=== PATIENT | male | born 1985 | race Caucasian/White ===

== ENCOUNTER 2019-01-14 01:13 | Observation (INO) ==
[2019-01-14] MEDS ORDERED: ACETAMINOPHEN 325 MG TAB PO PRN (01:28)
[2019-01-14 02:01] LABS: Hematocrit (blood only) 44.3 % (42-52); Hemoglobin 16.1 g/dL (14.0-18.0); Mean Corpuscular Hgb Conc 36.3 g/dL (32-36); Mean Corpuscular Volume 91.2 fL (80-100); Mean Platelet Volume 11.2 fL (7.4-10.4); Platelet Count 246 K/uL (130-400); RDW Coefficient of Variation 12.6 % (11.5-14.5); RDW Standard Deviation 41.8 fL (36.4-46.3); Red Blood Count 4.86 M/uL (4.7-6.1); White Blood Count 7.68 K/uL (4.8-10.8)
[2019-01-14 02:14] LABS: Partial Thromboplastin Time 27.9 Seconds (21.0-31.0)
[2019-01-14 02:21] LABS: BUN Creatinine Ratio 10.3 (10-20); Blood Urea Nitrogen 9 mg/dl (7-18); Calcium 8.3 mg/dl (8.5-10.1); Carbon Dioxide 29 mmol/L (21-32); Chloride 107 mmol/L (98-107); Creatinine Clr Calc Pharmacy 122.7 ml/min; Est GFR (African American) 134.6; Est GFR (Non-African American) 116.1; Glucose 91 mg/dl (70-99); Magnesium 2.3 mg/dl (1.8-2.4); Potassium 3.6 mmol/L (3.5-5.1); Sodium 139 mmol/L (136-145)
[2019-01-14 02:31] LABS: Folate (Folic Acid) 13.87 ng/ml (>5.38)
[2019-01-14 02:32] LABS: Chol HDL Ratio 4; Cholesterol 162 mg/dl (0-200); HDL Cholesterol 45 mg/dl; LDL Cholesterol Calculated 86 mg/dl; Triglycerides 156 mg/dl (0-150); Troponin I < 0.015 ng/ml (0-0.045); VLDL Cholesterol 31 mg/dl
[2019-01-14 02:38] LABS: ALC (manual) 3.95 K/uL (1.2-3.4); Basophils # (manual) 0.07 K/uL (0-0.2); Basophils % (manual) 0.9 %; Eosinophils % (manual) 2.6 %; Large Granular Lymph # (manua 1.21 K/uL; Large Granular Lymph % (manual) 15.7 %; Lymphocytes # (manual) 2.74 K/uL (1.2-3.4); Lymphocytes % (manual) 35.7 %; Metamyelocytes # (manual) 0.07 K/uL (0-0); Metamyelocytes % (manual) 0.9 %; Monocytes # (manual) 0.47 K/uL (0.11-0.59); Monocytes % (manual) 6.1 %; Neutrophils % (manual) 38.1 %; RBC Morphology Unremarkable
[2019-01-14] MEDS ORDERED: CALCIUM GLUCONATE 10% 1,000 MG in SODIUM CHLORIDE 0.9% 50 ML IV STA (03:39)
[2019-01-14] MEDS ORDERED: TRAMADOL HCL 50 MG TABLET PO PRN (03:39)
--- NOTE | 2019-01-14 04:35 | History & Physical Report ---
Date of Service January 14, 2019 Assessment & Plan (1) Atypical chest pain: Possibly musculoskeletal given reproducible component Rule out pericarditis Transient aphasia, extremity numbness symptoms Rule out TIA hx Lyme disease (Cardiac/ DRIER ATTENDANT involvement) sp tx ([facility] 2014) H. pylori infection as per records on PPI OBS PCU Check ESR, CRP, TTE RE chest pain MRI/MRA brain, Neurology consult RE transient aphasia Retrieve [facility] confinement records Further management pending work-up results. DVT prophylaxis. Lovenox subcu Full code Patient would like PCP's office to be notified of preferred name change to Ángel Valdivia. Patient employer requesting updates from providers. Ms.Nancy Everett, contact #[phone]. Patient friend, Ms. Shannon Castillo, agreeable to being contacted for size painter needs. Contact #[phone]. History of Present Illness Chief Complaint: Chest pain, transient aphasia, numbness arms and legs Primary Care Provider: Dr. Edouard (Patient recorded name is Ángel Bardales, MR#[id number], [employer] outpatient [employer] [facility].) History obtained from patient, patient employer, and records. Limited history from patient secondary to language barrier. Medical history significant for Lyme disease (Cardiac/ DRIER ATTENDANT involvement), H. pylori infection as per records on PPI, history of migraine. 5 years ago patient confined at [facility] for chest pain, extremity numbness symptoms attributed to Lyme disease. Transient third-degree AV block during confinement as per patient employer. Patient completed antibiotic Rx. 3 weeks ago patient noted intermittent left-sided chest discomfort sometimes going to the arm, somewhat pleuritic. Different from heartburn symptoms. Patient also having separate stomach upset symptoms which causes him to burp. Outpatient appointment with PCP slated for next week. Patient compliant with home meds. Yesterday patient noted to have transient aphasia symptoms, could not speak as p er employer, numbness of the hands and feet similar to symptoms from Lyme illness in the past. Migraine headaches controlled as per patient employer. Patient evaluated at [facility]. Improved chest pain, neurologic symptoms stay at the ER. CT head: No acute intracranial abnormality Chest x-ray was normal as per ER provider note. D-dimer, troponin, CBC, chemistries were normal. Urine tox was negative. Patient employer requested transfer to [facility]. Patient transported by employer to hospital via personal vehicle due to concerns with expenses with ambulance transfer from [facility]. 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 Allergies Allergy/AdvReac Type Severity Reaction Status Date / Time No Known Allergies Allergy Unverified 01/14/19 01:27 Home Medications Home Medications Medication Instructions Recorded Confirmed Type aspirin 81 mg PO DAILY 01/14/19 01/14/19 History omeprazole magnesium [Prilosec OTC] 20 mg PO DAILY 01/14/19 01/14/19 History topiramate [Topamax] 50 mg PO DAILY 01/14/19 01/14/19 History Past Med/Surg History Medical History Lyme disease Migraine Social History Preferred Language: Filipino Communication Ability: Effective Instructional Resource Teacher Required: Yes Beliefs That Will Affect Care: None Current Living Situation: Other Current Living Situation Comment: employee house Other Information That Helps Us Care for You: No Feels Safe at Home: Yes Smoking Status: Former smoker Second Hand Exposure: No Hx Alcohol Use: No Hx Substance Use: No Review of Systems Review of Systems: Could not be reliably obtained Physical Exam Physical Exam: GENERAL: Comfortable, pleasant, obese, no respiratory distress SKIN: Normal color, warm HEENT: [place] palpebral conjunctivae, no ptosis, dry buccal mucosa NECK : Supple, short neck, no tenderness CHEST : CTA, anterior chest wall tenderness HEART : RRR, no obvious murmurs ABDOMEN: Some distention, nontender EXTREMITIES : No LE swelling/tenderness, no other conspicuous deformities noted NEUROLOGIC : Coherent, no facial asymmetry, no other gross focality Results & Data Vital Signs (Past 12 Hours) Vital Signs Temp Pulse Resp BP Pulse Ox 01/14/19 04:00 36.6 C 59 L 16 134/73 99 01/14/19 01:32 36.5 C 61 20 135/71 98 Laboratory Results Laboratory Results WBC 7.68 K/uL (4.8-10.8) 01/14/19 01:41 RBC 4.86 M/uL (4.7-6.1) 01/14/19 01:41 Hgb 16.1 g/dL (14.0-18.0) 01/14/19 01:41 Hct 44.3 % (42-52) 01/14/19 01:41 MCV 91.2 fL (80-100) 01/14/19 01:41 MCH 33.1 pg (25-34) 01/14/19 01:41 MCHC 36.3 g/dL (32-36) H 01/14/19 01:41 RDW Std Deviation 41.8 fL (36.4-46.3) 01/14/19 01:41 RDW Coeff of [place] 12.6 % (11.5-14.5) 01/14/19 01:41 Plt Count 246 K/uL (130-400) 01/14/19 01:41 MPV 11.2 fL (7.4-10.4) H 01/14/19 01:41 Neutrophils % (Manual) 38.1 % 01/14/19 01:41 Lymphocytes % (Manual) 35.7 % 01/14/19 01:41 Monocytes % (Manual) 6.1 % 01/14/19 01:41 Eosinophils % (Manual) 2.6 % 01/14/19 01:41 Basophils % (Manual) 0.9 % 01/14/19 01:41 Metamyelocytes % (Man) 0.9 % 01/14/19 01:41 Neutrophils # (Manual) 2.93 K/uL (1.4-6.5) 01/14/19 01:41 Total Absolute Neuts 2.93 K/uL (1.4-6.5) 01/14/19 01:41 Lymphocytes # (Manual) 2.74 K/uL (1.2-3.4) 01/14/19 01:41 Total Abs Lymphocytes 3.95 K/uL (1.2-3.4) H 01/14/19 01:41 Monocytes # (Manual) 0.47 K/uL (0.11-0.59) 01/14/19 01:41 Eosinophils # (Manual) 0.20 K/uL (0-0.5) 01/14/19 01:41 Basophils # (Manual) 0.07 K/uL (0-0.2) 01/14/19 01:41 Metamyelocytes # (Man) 0.07 K/uL (0-0) H 01/14/19 01:41 Large Granular Lymphs 15.7 % 01/14/19 01:41 # Lrg Granular Lymphs 1.21 K/uL 01/14/19 01:41 RBC Morphology Unremarkable 01/14/19 01:41 APTT 27.9 Seconds (21.0-31.0) 01/14/19 01:41 PTT Ratio 1.0 01/14/19 01:41 Sodium 139 mmol/L (136-145) 01/14/19 01:41 Potassium 3.6 mmol/L (3.5-5.1) 01/14/19 01:41 Chloride 107 mmol/L (98-107) 01/14/19 01:41 Carbon Dioxide 29 mmol/L (21-32) 01/14/19 01:41 Anion Gap 3.0 (3-11) 01/14/19 01:41 BUN 9 mg/dl (7-18) 01/14/19 01:41 Creatinine 0.85 mg/dl (0.6-1.4) 01/14/19 01:41 Est Cr Clr Drug Dosing 122.7 ml/min 01/14/19 01:41 Est GFR ( Amer) 134.6 01/14/19 01:41 Est GFR (Non-Af Amer) 116.1 01/14/19 01:41 BUN/Creatinine Ratio 10.3 (10-20) 01/14/19 01:41 Glucose 91 mg/dl (70-99) 01/14/19 01:41 Calcium 8.3 mg/dl (8.5-10.1) L 01/14/19 01:41 Magnesium 2.3 mg/dl (1.8-2.4) 01/14/19 01:41 Troponin I < 0.015 ng/ml (0-0.045) 01/14/19 01:41 Triglycerides 156 mg/dl (0-150) H 01/14/19 01:41 Cholesterol 162 mg/dl (0-200) 01/14/19 01:41 LDL Cholesterol, Calc 86 mg/dl 01/14/19 01:41 VLDL Cholesterol, Calc 31 mg/dl 01/14/19 01:41 HDL Cholesterol 45 mg/dl 01/14/19 01:41 Cholesterol/HDL Ratio 4 01/14/19 01:41 Vitamin B12 384 pg/ml (211-911) 01/14/19 01:41 Folate 13.87 ng/ml (>5.38) 01/14/19 01:41 TSH 1.990 uIu/ml (0.300-4.500) 01/14/19 01:41 Diagnostic Findings EKG (01/13/19, [facility]) as per my interpretation: Rate 60, NSR, no ischemia CT abdomen pelvis initial read: Normal appendix, no bowel wall thickening/obstruction. No free air/free fluid. Small fat-containing left inguinal hernia. No other findings.
[2019-01-14] MEDS ORDERED: PROMETHAZINE HCL 12.5 MG in SODIUM CHLORIDE 0.9% 50 ML IV PRN (04:37)
[2019-01-14] MEDS ORDERED: NSS + 20MEQ KCL 20 MEQ/1,000 ML BAG IV ONE (04:37)
[2019-01-14] MEDS ORDERED: KETOROLAC TROMETHAMINE 15 MG/ML VIAL IV PRN (04:39)
[2019-01-14] MEDS ORDERED: MoRPHine SULFATE 2 MG/ML CARP IV PRN (04:41)
[2019-01-14] MEDS ORDERED: POTASSIUM CHLORIDE 20 MEQ TABCR PO STA (04:47)
[2019-01-14 04:58] LABS: Alanine Aminotransferase 46 U/L (12-78); Albumin Level 3.7 gm/dl (3.4-5.0); Alkaline Phosphatase 74 U/L (45-117); Aspartate Aminotransferase 22 U/L (15-37); Bilirubin Direct 0.2 mg/dl (0-0.2); Bilirubin,Total 1.1 mg/dl (0.2-1); Total Protein 7.8 gm/dl (6.4-8.2)
[2019-01-14] MEDS ORDERED: IOVERSOL 100ml IV PRN (05:04)
[2019-01-14 05:30] LABS: Lyme Ab IgG w/WB Rflx Negative (Negative); Lyme Ab IgM w/WB Rflx Negative (Negative)
[2019-01-14] MEDS: PANTOprazole 40 MG TAB PO SCH ×2 (07:05→20:53)
[2019-01-14] MEDS: ASPIRIN 81 MG ECTAB PO SCH (07:06)
[2019-01-14] MEDS: TOPIRAMATE 50 MG TAB PO SCH (07:07)
--- NOTE | 2019-01-14 07:39 | CT Scan Report ---
CT abd pelvis IV con only CLINICAL HISTORY: Generalized abdominal pain COMPARISON STUDY: None. TECHNIQUE: The patient was scanned in a dynamic helical fashion during intravenous administration of 94 cc of Optiray 320. A dose lowering technique was utilized adhering to the principles of ALARA. CT DOSE: 357.73 mGy.cm FINDINGS: Lower chest: The heart is normal in size and configuration, without pericardial effusion. The lung ba ses and pleural spaces are clear. Liver: The contrast-enhanced liver is normal in size, contour, and attenuation. There is no intrahepa tic biliary ductal dilatation. The hepatic veins and portal veins are patent. Gallbladder: Unremarkable. Spleen: Normal in size and attenuation. Pancreas: Unremarkable. Adrenal glands: Unremarkable. Kidneys: There is symmetric renal cortical enhancement. The kidneys are normal in size without hydron ephrosis. Bowel: There are no transition zones to indicate bowel obstruction. There is no evidence of acute div erticulitis. The appendix appears normal. Peritoneum: There is no intraperitoneal free air or abdominal ascites. There is a small fat-containin g left inguinal hernia. Vasculature: The abdominal aorta is normal in course and caliber. Adenopathy: None. Pelvic viscera: The bladder, and pelvic viscera are unremarkable. Skeletal structures: No destructive osseous lesions are seen. IMPRESSION: 1. No acute intra-abdominal or pelvic findings 2. No evidence of bowel obstruction. No evidence of free air 3. No evidence of acute diverticulitis. No evidence of acute appendicitis. Electronically signed by: Leander Boateng M.D. 01/14/2019 7:37 AM
[2019-01-14] MEDS: ENOXAPARIN INJ 40 MG/0.4 ML SYR SQ SCH (08:16)
[2019-01-14] MEDS ORDERED: PANTOprazole 40 MG TAB PO SCH (09:00)
--- NOTE | 2019-01-14 10:51 | Communication Note ---
Date of Service: January 14, 2019 I seen Mr. Valdivia today, interviewed him through the translating device we have available [facility], have reviewed the recorded history and the labs that we do have record at present but many of these are still pending I also performed a neurologic examination This man presents with a single episode yesterday of paresthesias involving his lips face hands and feet transient duration perhaps associated with some hyperventilation and increasing chest pain and not affiliated with any significant headache despite his history of migraines. He has seen Dr. Dutta in [place] about a year ago and was placed on Topamax I would assume at that time and is done well on very low-dose 50 mg a day without any complaints of cognitive impairment that I can obtain He has a remote history of Lyme disease with carditis and perhaps central nervous system involvement of unrecalled type treated at [facility] in 2014 and records regarding this are being requested He apparently stated that his symptoms were similar to those that he suffered at the onset of his Lyme disorder Currently he appears well on the neurologic examination is normal and we are awaiting results of the MRI and MRA I suspect that we probably are not going to see much other than perhaps some chronic low level white matter changes that we often see in patients who have had Lyme disease or have migraines and I do not see any acute neurologic events in the brainstem or evidence for any type of embolic shower I wonder if some of this was not anxiety related because of his increasing chest pain and I wonder if there was an element of hyperventilation but again this is a diagnosis of exclusion Full neurologic consultation has been dictated but will be later I will check back regarding the results of the MRI and MRA and will see the patient tomorrow Khoa Schwab MD
--- NOTE | 2019-01-14 11:14 | Magnetic Resonance Report ---
MRI OF THE BRAIN WITHOUT CONTRAST CLINICAL HISTORY: transient aphasia DIZZINESS. COMPARISON STUDY: Outside head CT dated 01/13/2019 FINDINGS: Sagittal T1, axial diffusion, proton density and T2 weighted axial, coronal FLAIR, and axial T1-weigh robin images were acquired. No intra or extra-axial mass lesions are visualized Axial diffusion-weighted images reveal no evidence of acute or subacute infarction. There is no evidence of ventricular dilatation. There is a cavum septa pellucida and cavum vergae. Proton density T2-weighted and FLAIR images reveal a tiny focus of increased FLAIR signal within the left temporal lobe. This finding is unlikely to be of acute clinical significance. There are no abnormal flow voids. IMPRESSION: 1. No acute intracranial findings 2. No evidence of intracranial mass 3. No evidence of acute or subacute infarction 4. 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 01/14/2019 11:13 AM
--- NOTE | 2019-01-14 11:17 | Magnetic Resonance Report ---
MR ANGIOGRAPHY OF THE [place]GR[place] OF [place] NO CONTRAST CLINICAL HISTORY: transient aphasia COMPARISON STUDY: None. A 3-D [id number] MR angiographic sequence of the [place] of [place] was performed. Both the source and projection images were reviewed. There is no evidence of major intracranial branch occlusion. There is no evidence of intracranial veronica nosis. There are no lesions suspicious for aneurysm. IMPRESSION: Unremarkable MR angiography of the [place]. Electronically signed by: Leander Boateng M.D. 01/14/2019 11:16 AM
--- NOTE | 2019-01-14 11:58 | Consultation Report ---
DATE OF CONSULTATION: 01/14/2019 HISTORY OF PRESENT ILLNESS: Ángel is 33 years old, resides in [place], lists his primary care physician as Dr. Edouard and has seen Dr. Dutta, a neurologist in [facility] for migraine headaches in the past and is currently taking Topamax in low dose with theoretically good control of the migraine frequency according to what I can glean from the patient and this information was gathered through the use of our translation device. 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 He has had increasing chest pain and was admitted because of that in addition to an episode yesterday during which he had paresthesias involving his lips, hands and feet, perhaps was a little dyspneic during this, perhaps had a little increase in the chest pain, and may have had difficulty forming words, although this aspect of the history is very unclear and it sounds as though most of it was a sensory phenomenon and its duration was relatively short and not accompanied by any other neurologic manifestations or by headache and has not recurred up until this time. He has been admitted to the hospital. An echocardiogram has been done which shows no significant cardiac valvular disease or source of emboli and he is off to have an MRI and MRA done but this has not been performed, but will be shortly. Records concerning [facility] data and the nature of his cardiac and neurologic involvement are being requested but are not here and other laboratory studies are still pending as he was just admitted from the Emergency Room less than 5 hours ago. PAST MEDICAL HISTORY: At this point is really as recorded and is pretty benign including a migraine headaches and history of Lyme disease. SOCIAL HISTORY: Reveals him to be employed. He lives in the [facility]. He takes no medications on a regular basis at home other than his Topamax, aspirin, and omeprazole and the Topamax dose is very low at 50 mg. ALLERGIES: He has no allergies to food or drugs. FAMILY HISTORY: Noncontributory. REVIEW OF SYSTEMS: Reveals chest pain, the low frequency migraine headaches, and the single event yesterday of the paresthesia involving his lips, hands, and feet, which was transient and has not recurred and otherwise seems to be unremarkable with the exception obviously of this history of Lyme disease from which he apparently has recovered. PHYSICAL EXAMINATION: VITAL SIGNS: Examination yesterday revealed temperature of 36.6, pulse was 59, respirations were 16, blood pressure was 134/73, and pulse oxygenation was 99. GENERAL: He was moderately over nourished, otherwise appeared to be in no acute distress. HEENT: Normal exam. NECK: No carotid bruits. LUNGS: Normal examination. HEART: Normal examination. There was no peripheral edema. NEUROLOGIC: Today, neurologically again we had to use a sweeper cleaner industrial, but his command of Yakut appeared to be quite adequate to provide a history and the sweeper cleaner industrial did not report any problems with inappropriate usage of words, etc. The history I obtained seems to correlate without change from the Emergency Room and the patient does have sufficient command over simple Polish to follow my instructions and did so well. He has normal eye movements, normal gross visual talavera, normal facial motility and strength, grossly normal facial sensation. Speech seems to be clear and nondysarthric. There is no drift or pronation sign, tremor, tics, or choreiform activity. No reflex asymmetry is noted and all reflexes are present. Toes are downgoing. No Kim signs are seen. Strength testing is normal. Sensation is intact to vibration, light touch, and temperature. LABORATORY DATA: Basic laboratory studies including a CBC and chemistry screen are pretty unremarkable and certainly normal and thus far again the echocardiogram is normal but other imaging studies are still pending. ASSESSMENT AND PLAN: I am not sure what happened yesterday. Some of this sounds like a potential hyperventilation or anxiety episode with the paresthesias and I am really not sure at all that he had what we are terming an aphasia. I will be curious to see what the MRI shows and the MRA. I suspect we would not see much, but we may see some residual of the prior Lyme disease. We may even see some high T2 intensity signals in a man who has had migraines, so I will get back to the chart tomorrow, take a look at him tomorrow afternoon, and we will go from there, but for the present time I see no reason to change his medications either for migraine control or low-grade vascular prophylaxis with the aspirin. RIMA
[2019-01-14] MEDS ORDERED: CYCLOBENZAPRINE HCL 5 MG TAB PO PRN (12:50)
--- NOTE | 2019-01-14 12:53 | Hospitalist Progress Note ---
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 pylori infection as per records on PPI Retrieve [facility] confinement records Further management pending work-up results. DVT prophylaxis. Lovenox subcu Full code Disposition pending Subjective Follow-up for apparent expressive aphasia, chest pain Train Operations Manager utilized Patient states he feels better overall Denies active chest pain, reports chest pain is worse with movement, sharp Denies associated shortness of breath, dizziness, sweats No recurrence of difficulty speaking or any focal neurologic deficits Denies other symptoms Review of Systems Review of Systems: All systems reviewed & are unremarkable except as noted in HPI & below Physical Exam Physical Exam: General- oriented x 3, not in distress, speaks in sentences with no effort or accessory muscle use Head- atraumatic Eyes- PERRL, EOMI, anicteric ENT- oropharynx clear Neck- supple, no JVD, no adenopathy, no thyromegaly; carotids +2/2, no bruits appreciated Lungs- clear to auscultation bilaterally, no rales/wheezes Heart- normal rate, regular rhythm; no murmur, no gallop, no rub appreciated Abdomen- normal bowel sounds, nondistended, soft, nontender, no masses or hepatosplenomegaly Extremities- no pretibial edema, no calf tenderness; peripheral pulses intact Neuro- alert, oriented x 3; CN 2-12 grossly intact; motor 5/5 bilaterally;sensation 100% on all extremities; no other gross focal neurologic deficits Skin- warm & dry Results & Data Vital Signs (Past 12 Hours) Vital Signs Temp Pulse Pulse Resp BP Pulse Ox Pulse Ox 01/14/19 09:04 36.2 C L 74 18 125/80 01/14/19 07:20 59 L 01/14/19 07:13 99 01/14/19 04:00 36.6 C 59 L 16 134/73 99 01/14/19 01:32 36.5 C 61 20 135/71 98 Laboratory Results Laboratory Results - last 24 hr 01/14/19 01/14/19 01/14/19 01:41 01:41 01:41 WBC 7.68 RBC 4.86 Hgb 16.1 Hct 44.3 MCV 91.2 MCH 33.1 MCHC 36.3 H RDW Std Deviation 41.8 RDW Coeff of [place] 12.6 Plt Count 246 MPV 11.2 H Neutrophils % (Manual) 38.1 Lymphocytes % (Manual) 35.7 Monocytes % (Manual) 6.1 Eosinophils % (Manual) 2.6 Basophils % (Manual) 0.9 Metamyelocytes % (Man) 0.9 Neutrophils # (Manual) 2.93 Total Absolute Neuts 2.93 Lymphocytes # (Manual) 2.74 Total Abs Lymphocytes 3.95 H Monocytes # (Manual) 0.47 Eosinophils # (Manual) 0.20 Basophils # (Manual) 0.07 Metamyelocytes # (Man) 0.07 H Large Granular Lymphs 15.7 # Lrg Granular Lymphs 1.21 RBC Morphology Unremarkable ESR APTT PTT Ratio Sodium 139 Potassium 3.6 Chloride 107 Carbon Dioxide 29 Anion Gap 3.0 BUN 9 Creatinine 0.85 Est Cr Clr Drug Dosing 122.7 Est GFR ( Amer) 134.6 Est GFR (Non-Af Amer) 116.1 BUN/Creatinine Ratio 10.3 Glucose 91 Calcium 8.3 L Magnesium 2.3 Total Bilirubin 1.1 H Direct Bilirubin 0.2 AST 22 ALT 46 Alkaline Phosphatase 74 Troponin I < 0.015 C-Reactive Protein Total Protein 7.8 Albumin 3.7 Triglycerides 156 H Cholesterol 162 LDL Cholesterol, Calc 86 VLDL Cholesterol, Calc 31 HDL Cholesterol 45 Cholesterol/HDL Ratio 4 Lipase 150 Vitamin B12 384 Folate 13.87 TSH 1.990 RPR Lyme Disease IgG Ab Lyme Disease IgM Ab 01/14/19 01/14/19 01/14/19 01:41 01:41 01:41 WBC RBC Hgb Hct MCV MCH MCHC RDW Std Deviation RDW Coeff of [place] Plt Count MPV Neutrophils % (Manual) Lymphocytes % (Manual) Monocytes % (Manual) Eosinophils % (Manual) Basophils % (Manual) Metamyelocytes % (Man) Neutrophils # (Manual) Total Absolute Neuts Lymphocytes # (Manual) Total Abs Lymphocytes Monocytes # (Manual) Eosinophils # (Manual) Basophils # (Manual) Metamyelocytes # (Man) Large Granular Lymphs # Lrg Granular Lymphs RBC Morphology ESR APTT 27.9 PTT Ratio 1.0 Sodium Potassium Chloride Carbon Dioxide Anion Gap BUN Creatinine Est Cr Clr Drug Dosing Est GFR ( Amer) Est GFR (Non-Af Amer) BUN/Creatinine Ratio Glucose Calcium Magnesium Total Bilirubin Direct Bilirubin AST ALT Alkaline Phosphatase Troponin I C-Reactive Protein Total Protein Albumin Triglycerides Cholesterol LDL Cholesterol, Calc VLDL Cholesterol, Calc HDL Cholesterol Cholesterol/HDL Ratio Lipase Vitamin B12 Folate TSH RPR Pending Lyme Disease IgG Ab Negative Lyme Disease IgM Ab Negative 01/14/19 01/14/19 07:53 07:53 WBC RBC Hgb Hct MCV MCH MCHC RDW Std Deviation RDW Coeff of [place] Plt Count MPV Neutrophils % (Manual) Lymphocytes % (Manual) Monocytes % (Manual) Eosinophils % (Manual) Basophils % (Manual) Metamyelocytes % (Man) Neutrophils # (Manual) Total Absolute Neuts Lymphocytes # (Manual) Total Abs Lymphocytes Monocytes # (Manual) Eosinophils # (Manual) Basophils # (Manual) Metamyelocytes # (Man) Large Granular Lymphs # Lrg Granular Lymphs RBC Morphology ESR 9 APTT PTT Ratio Sodium Potassium Chloride Carbon Dioxide Anion Gap BUN Creatinine Est Cr Clr Drug Dosing Est GFR ( Amer) Est GFR (Non-Af Amer) BUN/Creatinine Ratio Glucose Calcium Magnesium Total Bilirubin Direct Bilirubin AST ALT Alkaline Phosphatase Troponin I C-Reactive Protein < 0.29 Total Protein Albumin Triglycerides Cholesterol LDL Cholesterol, Calc VLDL Cholesterol, Calc HDL Cholesterol Cholesterol/HDL Ratio Lipase Vitamin B12 Folate TSH RPR Lyme Disease IgG Ab Lyme Disease IgM Ab
[2019-01-15] MEDS ORDERED: SODIUM CHLORIDE 0.9% 1000ML 1,000 ML IV SCH (08:00)
[2019-01-15 08:13] LABS: Basophils # (auto) 0.03 K/uL (0-0.2); Basophils % (auto) 0.5 %; Eosinophils # (auto) 0.11 K/uL (0-0.5); Eosinophils % (auto) 1.9 %; Hematocrit (blood only) 47.4 % (42-52); Hemoglobin 17.1 g/dL (14.0-18.0); Immature Granulocytes # (auto) 0.03 K/uL (0.00-0.02); Immature Granulocytes % (auto) 0.5 %; Lymphocytes # (auto) 2.54 K/uL (1.2-3.4); Lymphocytes % (auto) 43.9 %; Mean Corpuscular Hgb Conc 36.1 g/dL (32-36); Mean Corpuscular Volume 92.6 fL (80-100); Mean Platelet Volume 11.5 fL (7.4-10.4); Monocytes # (auto) 0.34 K/uL (0.11-0.59); Monocytes % (auto) 5.9 %; Neutrophils # (auto) 2.73 K/uL (1.4-6.5); Neutrophils % (auto) 47.3 %; Platelet Count 250 K/uL (130-400); RDW Coefficient of Variation 12.6 % (11.5-14.5); RDW Standard Deviation 42.6 fL (36.4-46.3); Red Blood Count 5.12 M/uL (4.7-6.1); White Blood Count 5.78 K/uL (4.8-10.8)
[2019-01-15] MEDS: TOPIRAMATE 50 MG TAB PO SCH (08:41)
[2019-01-15] MEDS: ASPIRIN 81 MG ECTAB PO SCH (08:41)
[2019-01-15] MEDS: PANTOprazole 40 MG TAB PO SCH (08:41)
[2019-01-15] MEDS: ENOXAPARIN INJ 40 MG/0.4 ML SYR SQ SCH (08:42)
[2019-01-15 08:46] LABS: BUN Creatinine Ratio 14.9 (10-20); Calcium 8.9 mg/dl (8.5-10.1); Creatinine Clr Calc Pharmacy 115.9 ml/min; Est GFR (African American) 131.4; Est GFR (Non-African American) 113.4
--- NOTE | 2019-01-15 14:29 | XRay Report ---
LEFT SHOULDER 3 VIEWS CLINICAL HISTORY: Left shoulder pain. FINDINGS: 3 views of the left shoulder are obtained. No prior studies are available for comparison at the time of dictation. The skeletal structures are well mineralized. No fracture or dislocation is s een. The glenohumeral and acromioclavicular joints are preserved. The visualized left upper lobe lung parenchyma appears clear. IMPRESSION: No acute bony abnormality is identified. Electronically signed by: Isauro Carvalho M.D. 01/15/2019 2:27 PM
--- NOTE | 2019-01-15 14:40 | Communication Note ---
Date of Service: January 15, 2019 I saw Mr. Valdivia briefly today, reviewed his imaging studies and reports and have pleased to report that he has had no further episodes of the paresthesias involving his lips hands or feet and that his chest pain and other issues seem to be resolving Furthermore his MRI scan and MRA studies of the cerebral circulation show no evidence for significant pathology and show no evidence for white matter changes that might have been seen following his Lyme disease or with his history of migraines At this point time according to the history obtained yesterday his migraines have been under good control with Topamax, he sees Dr. Dutta of [place] on an as- needed basis and luckily has not needed this service and his exam and imaging studies at this point show no evidence for an acute vascular event or indeed any prior significant vascular events or evidence for vasculitis so at this point I am going to sign off the case and will be happy to see him on an as-needed basis but frankly since he resides in [place] and has a relationship with Dr. Dutta I think for future and neurologic care should rest with that neurologic practice rather than ours here in [place] Khoa Schwab MD
--- NOTE | 2019-01-15 15:45 | Hospitalist Progress Note ---
Date of Service January 15, 2019 Assessment & Plan (1) Atypical chest pain: Possibly musculoskeletal given reproducibility, occurs with movement --ESR 9 --Troponin x 3 negative EKG no signs of acute ischemia or infarct Echo: The left ventricle is normal in size There is borderline concentric left ventricular hypertrophy Left ventricular wall motion is normal The left ventricular systolic function is normal Ejection fraction 60 to 65% There is no significant valvular disease -- no recurrence of chest pain on admission Transient aphasia, paresthesias -- MRI Brain: IMPRESSION: 1. No acute intracranial findings 2. No evidence of intracranial mass 3. No evidence of acute or subacute infarction 4. 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 --Neurologist, Dr. Schwab consulted --Feels episode likely secondary to hyperventilation secondary to anxiety brought on by chest pain No further interventions or additional medications recommended History of migraine Stable Follows with a neurologist in [place] Dr. Dutta Continue usual aspirin and Topamax hx Lyme disease (Cardiac/ FUR POLISHER involvement) sp tx ([facility] 2014) H. pylori infection, Dyspepsia Patient has been taking Prilosec for 2 to 3 weeks for dyspepsia symptoms States symptoms have resolved Recommend to discontinue Prilosec, and observe Recommend dietary changes, taking aspirin with a full stomach Follow-up closely as an outpatient Disposition discharge to home Follow-up with primary care physician Dr. Iqbal as outlined in DC instructions discussed with patient and his employer, all quesitons answered they are understanding, agreeable and comfortable with plan of care Subjective ff up for episode of chest pain, paresthesias seen resting in bed, comfortable, in good spirits states he feels fine overall no recurrence of chest pain, difficulty speaking, paresthesias, focal weakness/numbness denies other symptoms states he is back to his normal self states he is ready for discharge Review of Systems Review of Systems: All systems reviewed & are unremarkable except as noted in HPI & below Physical Exam Physical Exam: General- oriented x 3, not in distress, speaks in sentences with no effort or accessory muscle use Eyes- anicteric Neck- no JVD Lungs- clear breath sounds bilaterally Heart- normal rate, regular rhythm; no murmurs no pain on palpation of the chest Abdomen- normal bowel sounds, nondistended, soft, nontender Extremities- no pretibial edema, no calf tenderness Neuro- alert, oriented x 3; no focal neurologic deficits Skin- warm & dry Results & Data Vital Signs (Past 12 Hours) Vital Signs Temp Pulse Pulse Resp BP Pulse Ox 01/15/19 12:00 37.4 C 67 16 143/79 H 97 01/15/19 08:23 36.5 C 66 18 113/74 97 01/15/19 08:00 58 L 01/15/19 04:00 36.6 C 68 16 105/68 96 Laboratory Results Laboratory Results - last 24 hr 01/14/19 01/15/19 01/15/19 19:03 08:03 08:03 WBC 5.78 RBC 5.12 Hgb 17.1 Hct 47.4 MCV 92.6 MCH 33.4 MCHC 36.1 H RDW Std Deviation 42.6 RDW Coeff of [place] 12.6 Plt Count 250 MPV 11.5 H Immature Gran % (Auto) 0.5 Neut % (Auto) 47.3 Lymph % (Auto) 43.9 [place] % (Auto) 5.9 Eos % (Auto) 1.9 Baso % (Auto) 0.5 Immature Gran # (Auto) 0.03 H Neut # (Auto) 2.73 Lymph # (Auto) 2.54 [place] # (Auto) 0.34 Eos # (Auto) 0.11 Baso # (Auto) 0.03 Sodium 141 Potassium 4.0 Chloride 110 H Carbon Dioxide 27 Anion Gap 4.0 BUN 13 Creatinine 0.90 Est Cr Clr Drug Dosing 115.9 Est GFR ( Amer) 131.4 Est GFR (Non-Af Amer) 113.4 BUN/Creatinine Ratio 14.9 Glucose 109 H Calcium 8.9 Troponin I < 0.015
--- NOTE | 2019-01-15 17:16 | Discharge Summary ---
Date of Service January 15, 2019 Admission HPI Per Admitting Provider History obtained from patient, patient employer, and records. Limited history from patient secondary to language barrier. 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 pylori infection as per records on PPI, history of migraine. 5 years ago patient confined at [facility] for chest pain, extremity numbness symptoms attributed to Lyme disease. Transient third-degree AV block during confinement as per patient employer. Patient completed antibiotic Rx. 3 weeks ago patient noted intermittent left-sided chest discomfort sometimes going to the arm, somewhat pleuritic. Different from heartburn symptoms. Patient also having separate stomach upset symptoms which causes him to burp. Outpatient appointment with PCP slated for next week. Patient compliant with home meds. Yesterday patient noted to have transient aphasia symptoms, could not speak as per employer, numbness of the hands and feet similar to symptoms from Lyme illness in the past. Migraine headaches controlled as per patient employer. Patient evaluated at [facility]. Improved chest pain, neurologic symptoms stay at the ER. CT head: No acute intracranial abnormality Chest x-ray was normal as per ER provider note. D-dimer, troponin, CBC, chemistries were normal. Urine tox was negative. Patient employer requested transfer to [facility]. Patient transported by employer to hospital via personal vehicle due to concerns with expenses with ambulance transfer from [facility]. 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 Admission Exam Per Admitting Provider GENERAL: Comfortable, pleasant, obese, no respiratory distress SKIN: Normal color, warm HEENT: [place] palpebral conjunctivae, no ptosis, dry buccal mucosa NECK : Supple, short neck, no tenderness CHEST : CTA, anterior chest wall tenderness HEART : RRR, no obvious murmurs ABDOMEN: Some distention, nontender EXTREMITIES : No LE swelling/tenderness, no other conspicuous deformities noted NEUROLOGIC : Coherent, no facial asymmetry, no other gross focality Principal Diagnosis CHEST PAIN, likely Muscular Pain; Paresthesias, likely secondary to Anxiety Discharge Exam General- oriented x 3, not in distress, speaks in sentences with no effort or accessory muscle use Eyes- anicteric Neck- no JVD Lungs- clear breath sounds bilaterally Heart- normal rate, regular rhythm; no murmurs no pain on palpation of the chest Abdomen- normal bowel sounds, nondistended, soft, nontender Extremities- no pretibial edema, no calf tenderness Neuro- alert, oriented x 3; no focal neurologic deficits Skin- warm & dry Discharge Data Allergies Allergy/AdvReac Type Severity Reaction Status Date / Time No Known Allergies Allergy Unverified 01/14/19 01:27 Consultations 01/14/19 04:35 Consult Neurology Routine 01/14/19 04:39 Consult Health Information Management Routine 01/14/19 05:24 Consult Case Management - Discharge Planning Routine Ordered Studies 01/14/19 04:35 CT abd pelvis IV con only Urgent IMPRESSION: 1. No acute intra-abdominal or pelvic findings 2. No evidence of bowel obstruction. No evidence of free air 3. No evidence of acute diverticulitis. No evidence of acute appendicitis. MR angio head wo con Routine IMPRESSION: Unremarkable MR angiography of the [place]. MR brain wo con Routine IMPRESSION: 1. No acute intracranial findings 2. No evidence of intracranial mass 3. No evidence of acute or subacute infarction 4. 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 No acute intracranial findings 2. No evidence of intracranial mass 3. No evidence of acute or subacute infarction 4. 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 --Neurologist, Dr. Schwab consulted --Feels episode likely secondary to hyperventilation secondary to anxiety brought on by chest pain No further interventions or additional medications recommended History of migraine Stable Follows with a neurologist in [place] Dr. 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 pylori infection, Dyspepsia Patient has been taking Prilosec for 2 to 3 weeks for dyspepsia symptoms States symptoms have resolved Recommend to discontinue Prilosec, and observe Recommend dietary changes, taking aspirin with a full stomach Follow-up closely as an outpatient Disposition discharge to home Follow-up with primary care physician Dr. Iqbal as outlined in DC instructions discussed with patient and his employer, all questions answered they are understanding, agreeable and comfortable with plan of care Total Time Total Time Spent Total Time Spent (In Minutes): 45 minutes Discharge Plan Discharge Items Patient Disposition: Home - Self-Care Reason For Visit: CHEST PAIN Discharge Diagnosis: CHEST PAIN LIKELY MUSCULAR PAIN Discharge Goals: Diagnostic testing and Therapeutic intervention Activity: As commented below Activity Comment: NO HEAVY EXERTION UNTIL RE-EVALUATED BY PRIMARY CARE PHYSICIAN. Lifting: Wait until after follow-up appointment Exercise/Sports: Wait until after follow-up appointment Non-emergency contact: Primary Care Provider Call non-emergency contact if: you have any medication questions, your symptoms worsen, your pain is not controlled, your pain is unusual for you and you have a fever Diet: Heart Healthy Addtl Provider Instructions: FOLLOW UP WITH PRIMARY CARE PHYSICIAN DR. IQBAL ON Tuesday01/19/19 AT 1:00PM AT [facility]. AVOID SPICY FOODS, CARBONATED DRINKS, ALCOHOL, SMOKING. DRINK PLENTY OF FLUIDS. CALL PRIMARY CARE PHYSICIAN OR RETURN TO THE ER IF WITH RECURRENCE OR WORSENING OF SYMPTOMS. Prescriptions: Continued aspirin 81 mg Tablet,Chewable 81 mg PO DAILY RF: 0 topiramate [Topamax] 50 mg Tablet 50 mg PO DAILY RF: 0 Discontinued Prilosec OTC 20 mg Tablet,Delayed Release (Dr/Ec) 20 mg PO DAILY RF: 0 Stand-Alone Forms: [facility] Discharge Orders: Discharge Order (Routine); Ordered 01/15/19 Ordered By: Papito Lackey Admission Data Admit Date/Time: 01/14/19 01:13 Attending Provider: Papito Lackey Admit Provider: Keven Jeronimo Primary Care Provider: PCP,NO Other Providers: Khoa Schwab Joseph N. Service: Telemetry Other Interventions: Discharge Summary Assessment (RN) Last Done: 01/15/19 16:08 DC Date/Time DO NOT enter until pt leaves facility: 01/15/19 16:26
== END 2019-01-15 16:26 | disposition home or self-care (01) ==
LOC: MERGE 01:13 → 2S 01:13 → SUATTDRO 01:13 → INTOOBSV 01:13
DX: R07.89 Other chest pain